=== PATIENT | female | born 1975 | race Caucasian/White ===

== ENCOUNTER 2017-02-03 14:56 | Emergency (ER) | payer OTHER ==
[~2017-02-03 14:56] MED LIST: BUSP10TA PO; CELE20TA PO; COUM2TAB PO; METHE500 PO; OXYBXL5 PO
[2017-02-03 15:03] VITALS: BP 117/60; PULSE 92; RESP 20; TEMP 98.5; O2SAT 98
[2017-02-03] MEDS ORDERED: SODIUM CHLORIDE 0.9% FLUSH 10 ML FLUSH IVF PRN (16:00)
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
[2017-02-03 16:18] LABS: AUTOMATED NEUTROPHIL # 9.6 TH/MM3 (1.8-7.7); BASOPHIL # 0.1 TH/MM3 (0-0.2); BASOPHIL % 0.5 % (0.0-2.0); EOSINOPHIL % 0.2 % (0.0-4.0); HEMATOCRIT 41.9 % (35.0-46.0); HEMO FLAGS DIFF FINAL; LYMPH % 8.5 % (9.0-44.0); LYMPHOCYTE # 0.9 TH/MM3 (1.0-4.8); MEAN CELL VOLUME 95.7 FL (80.0-100.0); MEAN CORPUSCULAR HEMOGLOBIN 32.8 PG (27.0-34.0); MEAN CORPUSCULAR HGB CONC 34.3 % (32.0-36.0); MONO % 3.5 % (0.0-8.0); NEUT % 87.3 % (16.0-70.0); PLATELET COUNT 297 TH/MM3 (150-450); RED BLOOD COUNT 4.37 MIL/MM3 (4.00-5.30); RED CELL DISTRIBUTION WIDTH 12.6 % (11.6-17.2)
[2017-02-03 16:30] LABS: CHLORIDE 109 MEQ/L (98-107); SODIUM (NA) 140 MEQ/L (136-145)
[2017-02-03 16:32] VITALS: O2SAT 96
[2017-02-03 16:33] LABS: ANION GAP 12 MEQ/L (5-15); BLOOD UREA NITROGEN 8 MG/DL (7-18)
[2017-02-03 16:36] LABS: ALT (GPT) 66 U/L (10-53); APTT (PATIENT) 28.7 SEC (24.3-30.1); AST (GOT) 43 U/L (15-37); GLOMERULAR FILTRATION RATE 116 ML/MIN (>89); INTERNATIONAL NORMALIZED RATIO 1.8 RATIO; PROTHROMBIN TIME - PATIENT 20.7 SEC (9.8-11.6)
[2017-02-03 16:38] LABS: TOTAL BILIRUBIN ADULT 0.4 MG/DL (0.2-1.0)
[2017-02-03 16:39] LABS: ALKALINE PHOSPHATASE 56 U/L (45-117); CREATINE KINASE 130 U/L (26-192)
[2017-02-03 16:41] LABS: BETA HCG QUANT LESS THAN 1 MIU/ML (0-5)
[2017-02-03 16:52] LABS: CKMB 1.2 NG/ML (0.5-3.6)
[2017-02-03] MEDS ORDERED: LORazepam 2 MG/ML VIAL IV PUSH ONE (17:15)
[2017-02-03] MEDS ORDERED: IOHEXOL 350 MG/ML 10 ML VIAL (for RAD DIAG) IV ONE (17:31)
--- NOTE | 2017-02-03 17:43 | RADRPT ---
EXAM DATE/TIME: 02/03/2017 17:09 [facility] COMPARISON: No previous studies available for comparison. INDICATIONS : Persistent shortness of breath. IV CONTRAST: 65 cc Omnipaque 350 (iohexol) IV RADIATION DOSE: 7.27 CTDIvol (mGy) MEDICAL HISTORY : Deep venous thrombosis. Paraplegic. Anticoagulant therapy. SURGICAL HISTORY : Bladder surgery. Orthopedic surgery. ENCOUNTER: Initial ACUITY: 1 day PAIN SCALE: 0/10 LOCATION: chest TECHNIQUE: Volumetric scanning of the chest was performed using a pulmonary embolism protocol MIP images were re constructed. Using automated exposure control and adjustment of the mA and/or kV according to patien t size, radiation dose was kept as low as reasonably achievable to obtain optimal diagnostic quality images. DICOM format image data is available electronically for review and comparison. FINDINGS: No filling defects identified to suggest pulmonary embolic disease. No pleural or pericardial effusio n. No lung consolidation. There is mild cylindrical bronchiectasis in the lungs. No acute findings in the upper abdomen. CONCLUSION: 1. Negative for pulmonary embolism. 2. Mild cylindrical bronchiectasis especially right upper lobe. 3. Previous spine fixation. No consolidations or effusions. Emerson Osborne MD on February 03, 2017 at 17:36 Board Certified Radiologist. This report was verified electronically.
[2017-02-03 18:00] VITALS: BP 114/60; PULSE 84; RESP 18; O2SAT 98
--- NOTE | 2017-02-04 14:22 | EKG ---
Date Performed: 02/03/2017 Time Performed: 16:14:14 PTAGE: 41 years EKG: Sinus rhythm NONSPECIFIC T-WAVE ABNORMALITY Since previous tracing, no significant change noted BORDERLINE ECG PREVIOUS TRACING : 10/21/2015 07.01 DOCTOR: Noel Talamantes Interpretating Date/Time 02/04/2017 14:20:43
[2017-02-15] MEDS ORDERED: WARF-23 PO (11:47)
[2017-02-15] MEDS ORDERED: RANI150T PO (12:10)
== END 2017-02-03 18:36 | disposition home or self-care (01) ==
LOC: PHEFT 14:56
DX: R06.00 Dyspnea, unspecified (principal); R13.10 Dysphagia, unspecified; R79.1 Abnormal coagulation profile; R94.31 Abnormal electrocardiogram [ECG] [EKG]; G82.20 Paraplegia, unspecified; Z79.01 Long term (current) use of anticoagulants; Z87.39 Personal history of other diseases of the musculoskeletal system and connective tissue; Z86.59 Personal history of other mental and behavioral disorders; Z86.79 Personal history of other diseases of the circulatory system; Z86.718 Personal history of other venous thrombosis and embolism; Z87.19 Personal history of other diseases of the digestive system; Z87.448 Personal history of other diseases of urinary system; Z86.2 Personal history of diseases of the blood and blood-forming organs and certain disorders involving the immune mechanism
CPT/HCPCS: 71275; 80053; 82550; 82552; 83880; 84484; 84702; 85025; 85379; 85610; 85730; 93005; 96374; 99285; J2060; Q9967

== ENCOUNTER → 2017-04-19 | Outpatient (CLI) | payer OTHER ==
[~2017-04-19] MED LIST changes: -COUM2TAB PO; +RANI150T PO; +WARF-23 PO
--- NOTE | 2017-04-26 08:45 | RSPPFT ---
DATE OF PROCEDURE: 04/19/17 COMMENTS: Spirometry with normal flow rates and ratios. Diffusion capacity is normal. IMPRESSION: 1. No evidence of airways obstruction. 2. Normal diffusion capacity. 3. Non-significant response to acutely inhaled bronchodilator.
== END ==
LOC: HRSP 11:51
PROVIDERS: ATTEND Internal Medicine Sleep Medicine
DX: R06.89 Other abnormalities of breathing (principal)
CPT/HCPCS: 94060; 94729

== ENCOUNTER 2017-10-18 19:55 | Emergency (ER) | payer OTHER ==
[~2017-10-18] VITALS: Ht 152.4 cm; Wt 49.0 kg
[~2017-10-18 19:55] MED LIST changes: +BREX1TAB3 PO; +DULC10SU3 RECTAL; -OXYBXL5 PO
[2017-10-18 19:58] VITALS: BP 119/57; PULSE 80; RESP 16; TEMP 97.9; O2SAT 100
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
[2017-10-18] MEDS ORDERED: OXYB10TA PO (20:18)
[2017-10-18 20:24] LABS: BILIRUBIN, URINE NEG (NEG); BLOOD, URINE SMALL (NEG); GLUCOSE,URINE NEG (NEG); KETONE, URINE 15 mg/dL (NEG); NITRITE,URINE POS (NEG); URINE COLOR YELLOW (YELLW/STRAW); URINE LEUKOCYTE ESTERASE SMALL (NEG)
[2017-10-18 20:30] LABS: MUCUS URINE FEW /lpf (OCC)
[2017-10-18 20:31] LABS: BACTERIA, URINE MANY /hpf; RBC, URINE 0-3 /hpf (0-3); SQUAMOUS EPITHELIAL CELL URINE 0-5 /hpf (0-5); WHITE BLOOD CELL CLUMPS FEW
[2017-10-18] MEDS ORDERED: CEPH-460 PO (20:46)
== END 2017-10-18 21:24 | disposition home or self-care (01) ==
LOC: PHEFT 19:55
DX: N30.01 Acute cystitis with hematuria (principal); M54.5 Low back pain; B96.20 Unspecified Escherichia coli [E. coli] as the cause of diseases classified elsewhere; B96.1 Klebsiella pneumoniae [K. pneumoniae] as the cause of diseases classified elsewhere; G82.20 Paraplegia, unspecified; K21.9 Gastro-esophageal reflux disease without esophagitis; F41.8 Other specified anxiety disorders; Z79.01 Long term (current) use of anticoagulants; Z87.39 Personal history of other diseases of the musculoskeletal system and connective tissue; Z86.718 Personal history of other venous thrombosis and embolism; Z87.19 Personal history of other diseases of the digestive system; Z87.448 Personal history of other diseases of urinary system
CPT/HCPCS: 81001; 87077; 87086; 87186; 96372; 99283; J0696

== ENCOUNTER 2017-11-08 17:03 | Emergency (ER) | payer OTHER ==
[~2017-11-08 17:03] MED LIST changes: -BREX1TAB3 PO; +CEPH-460 PO; -DULC10SU3 RECTAL; +OXYB10TA PO
[2017-11-08] MEDS ORDERED: BUSP10TA PO (17:09)
[2017-11-08] MEDS ORDERED: OMEP20TA93 PO (17:09)
[2017-11-08 17:10] VITALS: BP 99/57; PULSE 90; RESP 16; TEMP 97.9; O2SAT 98
[2017-11-08] MEDS ORDERED: SODIUM CHLOR 0.9% 1000 ML INJ 1,000 ML IV SCH (17:11)
[2017-11-08 17:12] VITALS: O2SAT 98
[2017-11-08] MEDS ORDERED: ONDANSETRON HCL 4 MG/2 ML VIAL IVP ONE (17:15)
[2017-11-08] MEDS ORDERED: SODIUM CHLORIDE 0.9% FLUSH 10 ML FLUSH IV FLUSH PRN (17:15)
[2017-11-08] MEDS ORDERED: ALUMINUM/MAGNESIUM/SIMETH 30 ML CUP PO ONE (17:15)
[2017-11-08] MEDS ORDERED: FAMOTIDINE 20 MG/2 ML VIAL IV PUSH ONE (17:15)
[2017-11-08] MEDS ORDERED: LIDOCAINE VISCOUS 2% SOLN 15 ML UDC PO ONE (17:15)
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
[2017-11-08 17:38] LABS: AUTOMATED NEUTROPHIL # 13.1 TH/MM3 (1.8-7.7); BASOPHIL % 0.2 % (0.0-2.0); EOSINOPHIL % 0.3 % (0.0-4.0); HEMATOCRIT 44.8 % (35.0-46.0); HEMOGLOBIN 15.5 GM/DL (11.6-15.3); LYMPH % 3.9 % (9.0-44.0); LYMPHOCYTE # 0.6 TH/MM3 (1.0-4.8); MEAN CELL VOLUME 95.8 FL (80.0-100.0); MEAN CORPUSCULAR HEMOGLOBIN 33.2 PG (27.0-34.0); MEAN CORPUSCULAR HGB CONC 34.6 % (32.0-36.0); MONO % 3.8 % (0.0-8.0); MONOCYTE # 0.5 TH/MM3 (0-0.9); NEUT % 91.8 % (16.0-70.0); PLATELET COUNT 443 TH/MM3 (150-450); RED BLOOD COUNT 4.67 MIL/MM3 (4.00-5.30); RED CELL DISTRIBUTION WIDTH 15.1 % (11.6-17.2); WHITE BLOOD COUNT 14.2 TH/MM3 (4.0-11.0)
[2017-11-08] MEDS ORDERED: FAMOTIDINE 20 MG TAB PO ONE (17:45)
[2017-11-08 17:47] LABS: CHLORIDE 106 MEQ/L (98-107); SODIUM (NA) 139 MEQ/L (136-145)
[2017-11-08 17:50] LABS: ALBUMIN 4.4 GM/DL (3.4-5.0); BICARBONATE 22.9 MEQ/L (21.0-32.0); BLOOD UREA NITROGEN 9 MG/DL (7-18); CALCIUM 8.9 MG/DL (8.5-10.1); GLUCOSE,RANDOM 109 MG/DL (74-106)
[2017-11-08 17:51] LABS: INTERNATIONAL NORMALIZED RATIO 1.4 RATIO; PROTHROMBIN TIME - PATIENT 14.4 SEC (9.8-11.6)
[2017-11-08 17:53] LABS: ALT (GPT) 40 U/L (10-53); AST (GOT) 15 U/L (15-37); CREATININE 0.56 MG/DL (0.50-1.00); GLOMERULAR FILTRATION RATE 118 ML/MIN (>89)
[2017-11-08 17:55] LABS: TOTAL BILIRUBIN ADULT 0.4 MG/DL (0.2-1.0); TOTAL PROTEIN 8.3 GM/DL (6.4-8.2)
[2017-11-08 17:56] LABS: ALKALINE PHOSPHATASE 75 U/L (45-117)
[2017-11-08 18:03] LABS: BILIRUBIN, URINE NEG (NEG); BLOOD, URINE LARGE (NEG); GLUCOSE,URINE NEG (NEG); KETONE, URINE 15 mg/dL (NEG); NITRITE,URINE NEG (NEG); PH, URINE 5.5 (5.0-8.5); URINE COLOR YELLOW (YELLW/STRAW); URINE LEUKOCYTE ESTERASE LARGE (NEG)
[2017-11-08 18:15] LABS: BACTERIA, URINE FEW /hpf; SQUAMOUS EPITHELIAL CELL URINE 0-5 /hpf (0-5); WBC, URINE 100-200 /hpf (0-5)
[2017-11-08] MEDS ORDERED: CIPR-9 PO (18:28)
[2017-11-08] MEDS ORDERED: ZOFR4TAB3 SL (18:30)
[2017-11-08] MEDS ORDERED: cefTRIAXone INJ 1,000 MG in SODIUM CHLORIDE 0.9% INJ 100 ML IV ONE (18:30)
[2017-11-08 18:35] VITALS: BP 92/53; PULSE 89; RESP 16; O2SAT 100
[2017-11-08 19:40] VITALS: BP 103/62
== END 2017-11-08 19:47 | disposition home or self-care (01) ==
LOC: PHED 17:03
DX: R11.2 Nausea with vomiting, unspecified (principal); T83.511A Infection and inflammatory reaction due to indwelling urethral catheter, initial encounter; N39.0 Urinary tract infection, site not specified; B96.20 Unspecified Escherichia coli [E. coli] as the cause of diseases classified elsewhere; G82.20 Paraplegia, unspecified; M19.90 Unspecified osteoarthritis, unspecified site; K21.9 Gastro-esophageal reflux disease without esophagitis; M19.012 Primary osteoarthritis, left shoulder; Z86.718 Personal history of other venous thrombosis and embolism
CPT/HCPCS: 80053; 81001; 83605; 83690; 85025; 85610; 85730; 87077; 87086; 87186; 96361; 96365; 96375; 99284; J0696; J2405; J7030

== ENCOUNTER → 2017-11-28 | Outpatient (CLI) | payer OTHER ==
[~2017-11-28] MED LIST changes: -CEPH-460 PO; +CIPR-9 PO; +OMEP20TA93 PO; -RANI150T PO; +ZOFR4TAB3 SL
[2017-11-28 09:06] LABS: HEMATOCRIT 41.2 % (35.0-46.0); HEMOGLOBIN 14.1 GM/DL (11.6-15.3); MEAN CELL VOLUME 96.4 FL (80.0-100.0); MEAN CORPUSCULAR HEMOGLOBIN 32.9 PG (27.0-34.0); MEAN CORPUSCULAR HGB CONC 34.1 % (32.0-36.0); MEAN PLATELET VOLUME 9.4 FL (7.0-11.0); PLATELET COUNT 306 TH/MM3 (150-450); RED BLOOD COUNT 4.28 MIL/MM3 (4.00-5.30); WHITE BLOOD COUNT 3.8 TH/MM3 (4.0-11.0)
[2017-11-28 09:10] LABS: BILIRUBIN, URINE NEG (NEG); BLOOD, URINE TRACE (NEG); GLUCOSE,URINE NEG (NEG); KETONE, URINE NEG (NEG); MUCUS URINE FEW /lpf (OCC); NITRITE,URINE NEG (NEG); PH, URINE 7.5 (5.0-8.5); SQUAMOUS EPITHELIAL CELL URINE <1 /hpf (0-5); URINE COLOR COLORLESS (YELLW/STRAW); URINE LEUKOCYTE ESTERASE NEG (NEG)
[2017-11-28 09:36] LABS: BICARBONATE 21.5 MEQ/L (21.0-32.0); BLOOD UREA NITROGEN 6 MG/DL (7-18); CALCIUM 8.7 MG/DL (8.5-10.1); CHLORIDE 111 MEQ/L (98-107); CREATININE 0.53 MG/DL (0.50-1.00); GLOMERULAR FILTRATION RATE 126 ML/MIN (>89); GLUCOSE,FASTING 63 MG/DL (74-99); SODIUM (NA) 141 MEQ/L (136-145)
== END ==
LOC: CPRE 07:58
PROVIDERS: ATTEND Obstetrics & Gynecology
DX: Z01.812 Encounter for preprocedural laboratory examination (principal); N92.4 Excessive bleeding in the premenopausal period
CPT/HCPCS: 36415; 80048; 81001; 84703; 85027

== ENCOUNTER → 2017-12-03 | Day surgery (SDC) | payer OTHER ==
[~2017-12-03] VITALS: Ht 152.4 cm; Wt 49.0 kg
[~2017-12-03] MED LIST changes: +CHLORHEXIDINE GLUCONATE 2 % 1 PACK (2 CLOTHS) TOPICAL PRN; -CIPR-9 PO; +DEXAMETHASONE SOD PHOS 4 MG/ML VIAL IV ONE; +DO NOT ADM ANY ANTICOAGULANT DRUGS PRN; +KETOROLAC TROMETHAMINE 30 MG/ML (IVP) VIAL IV PUSH ONE; +KETOROLAC TROMETHAMINE 60 MG/2 ML (IM) VIAL IM PRN; +LACTATED RINGER'S 1000 ML IV PRN; +LIDOCAINE HCL 1% PF 5 ML SYRINGE OTHER ONE; +METOPROLOL TARTRATE 25 MG TAB PO PRN; +NITROGLYCERIN-D5W 50 MG/250 ML 250 ML ONE; +ONDANSETRON HCL 4 MG/2 ML VIAL IV ONE; +ONDANSETRON HCL 4 MG/2 ML VIAL IV PUSH PRN; +PHENYLEPH/NS 1000 MCG/10 ML SYR IV ONE; +POVIDONE IODINE 5% (ANTISEPSIS KIT) 4 APPLICATIONS EACH NARE PRN; +PROPOFOL 200 MG/20 ML AMP IV ONE; +SODIUM CHLORID 0.9% 500 ML IV PRN; +ceFAZolin 2 GM/DEX PREMIX 50 ML IV SCH; +ePHEDrine/NS 25 MG/5 ML SYRINGE IV ONE; +oxyCODONE/ACETAMINOPHEN 5 MG/325 MG TAB PO PRN
--- NOTE | 2017-12-03 09:14 | MP ---
cc: Ester Drake MD DATE OF OPERATION: 12/03/2017 PREOPERATIVE DIAGNOSIS: Menorrhagia. POSTOPERATIVE DIAGNOSIS: Menorrhagia. PROCEDURE: Examination under anesthesia, hysteroscopy, NovaSure endometrial ablation. SURGEON: Ester Drake MD. FLUIDS: 600 mL crystalloid. ESTIMATED BLOOD LOSS: 10 mL. URINE OUTPUT: 60 mL clear yellow on straight cath prior to procedure. FINDINGS: Uterus was approximately 6-8 weeks in size on examination under anesthesia, at hysteroscopy, a normal endometrial cavity was noted. Both tubal ostia were visualized. PROCEDURE NOTE: The patient was taken to the operating room where general anesthesia was found to be adequate. The patient had an LMA. She was prepped and draped in the normal sterile fashion in the dorsal lithotomy position with careful positioning of the legs and hips. The urinary bladder was emptied of urine using a straight catheter. A speculum was placed in the vagina. A single-tooth tenaculum applied to the anterior lip of the cervix. The uterus sounded to approximately 8 cm. The cervix was then gently dilated with Vinayak dilators sizes 9 through 20. Hysteroscopy was then performed with about 60 mL of saline. A normal endometrial cavity was noted. Both tubal ostia were visualized. The hysteroscope was removed. The NovaSure device was then inserted into the endometrial cavity. The cavity length was 5.5 cm. The width was 2.5 cm. A cavity assessment was performed. The machine was then enabled and the ablation was completed at 76 gregorio of power in 49 seconds. The NovaSure device was then removed from the uterus. The tenaculum was removed. Hemostasis was noted. The speculum was removed. The patient was awakened from anesthesia and transferred to the recovery room in stable condition. There was no pathology. MD COLIN España/ROBER , 09:03 AM , 09:13 AM [facility] SYSTEM[facility]
[2017-12-03 10:07] VITALS: BP 107/57; PULSE 81; RESP 16; TEMP 97.8; O2SAT 100
== END | disposition home or self-care (01) ==
LOC: HSDC 06:05
PROVIDERS: ATTEND Obstetrics & Gynecology
DX: N92.0 Excessive and frequent menstruation with regular cycle (principal); Z87.440 Personal history of urinary (tract) infections; G82.20 Paraplegia, unspecified; Z79.01 Long term (current) use of anticoagulants
CPT/HCPCS: 00952; 58563; 86850; 86900; 86901; J0690; J1100; J1885; J2370; J2405; J3010; J7120